=== PATIENT | female | born 1960 | race Hispanic/Latino ===

== ENCOUNTER 2021-01-23 09:13 | Day surgery (SDC) | payer MEDICARE ==
[2021-01-21 13:43] LABS: BASOPHILS % (AUTO) 0.6 % (0.0-5.0); EOSINOPHILS % (AUTO) 1.2 % (0.0-8.0); HEMATOCRIT 33.1 % (36-48); LYMPHOCYTES % (AUTO) 34.6 % (21.0-51.0); MEAN CORPUSCULAR HEMOGLOBIN 30.5 pg (27.0-33.0); MEAN CORPUSCULAR HGB CONC 32.6 g/dL (32.0-36.0); MEAN CORPUSCULAR VOLUME 93.5 fL (79-99); MONOCYTES % (AUTO) 9.8 % (3.0-13.0); NEUTROPHILS % (AUTO) 53.4 % (40.0-77.0); PLATELET COUNT (AUTO) 242 K/uL (130-400); RED BLOOD CELL COUNT(AUTO) 3.54 MIL/uL (4.00-5.50); RED CELL DISTRIBUTION WIDTH 13.8 % (11.0-15.5); WHITE BLOOD COUNT (AUTO) 7.8 K/uL (4.8-10.8)
[2021-01-21 13:53] LABS: INR 1.01 (0.85-1.15); POTASSIUM 5.6 mmol/L (3.5-5.1)
[2021-01-21 14:18] LABS: CREATININE 8.6 mg/dL (0.5-1.5)
[2021-01-22 14:24] VITALS: BP 192/83
[~2021-01-23] VITALS: Ht 157.5 cm; Wt 72.8 kg
[2021-01-23] VITALS (7 sets, daily range): BP systolic 131–190; BP diastolic 59–82
[~2021-01-23 09:13] MED LIST: 0.9% NACL 500ML IV.SOLN 500 ML IV SCH; AMLO-258 PO; ASCO500T10 PO; DOXY100C5 PO; FLUT15.812 NS; FOLI1TAB85 PO; HYDR-4153 PO; METO25TA6 PO; ZINC220T4 PO
[2021-01-23] MEDS ORDERED: 0.9%NACL 1000ML 1,000 ML IV ONE (10:14)
[2021-01-23] MEDS ORDERED: NICARDIPINE 25MG INJ IV ONE (12:53)
[2021-01-23] MEDS ORDERED: SODIUM BICARB 50MEQ 50ML VIAL 50 ML ONE (12:53)
[2021-01-23] MEDS ORDERED: HEPARIN 10,000 UNIT/10ML (1,000 UNIT/ML) VIAL ONE (12:53)
[2021-01-23] MEDS ORDERED: FENTANYL CITRATE PF 50 MCG/1 ML 2ML VIAL ONE (12:54)
[2021-01-23] MEDS ORDERED: MIDAZOLAM HCL 1 MG/ML 2ML VIAL ONE (12:54)
[2021-01-23] MEDS ORDERED: LIDOCAINE HCL 400MG/20ML VIAL ONE (12:54)
[2021-01-23] MEDS ORDERED: IOHEXOL-350 50ML VIAL IV ONE (12:54)
[2021-01-23] MEDS ORDERED: IOHEXOL 350 MG/ML 100ML INFUS..BTL IV ONE (12:54)
[2021-01-23] MEDS ORDERED: NITROGLYCERIN 50MG VIAL IV ONE (12:59)
[2021-01-23] MEDS ORDERED: LABETALOL 20MG SYG IV ONE (13:55)
== END 2021-01-23 16:20 | disposition home or self-care (01) ==
LOC: DAH 09:13
PROVIDERS: ATTEND Internal Medicine Cardiovascular Disease
DX: Z01.810 Encounter for preprocedural cardiovascular examination (principal); I25.10 Atherosclerotic heart disease of native coronary artery without angina pectoris; I10 Essential (primary) hypertension; I25.2 Old myocardial infarction; Z79.899 Other long term (current) drug therapy; Z98.890 Other specified postprocedural states; Z79.01 Long term (current) use of anticoagulants
CPT/HCPCS: 36415 ×2; 71045; 80048; 84132; 85025; 85610; 85730; 93005; 93458; A4215; A4216; A4221; A4222; A4223 ×3; A4606; A4663; C1760; C1894 ×2; J1644; J3490 ×3; J7030; Q9965; Q9967 ×2; J2250; J3010